=== PATIENT | female | born 1985 | race Asian ===

== ENCOUNTER 2017-01-07 14:22 | Emergency (ER) | payer BC ==
[2017-01-07 14:59] VITALS: BP 99/60
--- NOTE | 2017-01-07 15:25 | UC ---
Skin Complaint HPI - HPI Summary HPI Summary: 31 female presents with complaints of bug bites after sleeping in a hotel bed last night. She noticed the bugs in the bed around 11pm. States she went to a different hotel at this time. She has approximately 5-6 bites mainly on her right arm. Denies discharge. Admits to redness, swelling and pruritis. Patient was just seen at her OBGYN as she is 17 weeks . She is worried about ad terminal makeup operator effects. Denies any PMHx. Patient brought a picture on her phone and resembles bed bugs. - History of Current Complaint Chief Complaint: UCSkin Time Seen by Provider: 01/07/17 14:56 Stated Complaint: BUG BITE Hx Obtained From: Patient Hx Last Menstrual Period: 01/31/16 ?: Yes Onset/Duration: Sudden Onset Skin Exposure Onset/Duration: Days Ago Onset Severity: Mild Current Severity: Mild Location: Hand (Right), Other - right upper extremitiy Character: Pruritus, Redness, Raised Aggravating: Nothing Alleviating: Nothing Associated Signs & Symptoms: Positive: Negative Related History: Insect Bite/Sting - bed bugs - Allergy/Home Medications Allergies/Adverse Reactions: Allergies Allergy/AdvReac Type Severity Reaction Status Date / Time Penicillins Allergy Hives Verified 02/16/16 18:15 Sulfa Antibiotics Allergy Hives Verified 02/16/16 18:15 Home Medications: Home Medications Vitamins 1 tab PO DAILY 01/07/17 [History Confirmed 01/07/17] Review of Systems Constitutional: Negative Skin: Other - bed bug bites Respiratory: Negative Cardiovascular: Negative Gastrointestinal: Negative Musculoskeletal: Negative Neurological: Negative All Other Systems Reviewed And Are Negative: Yes PMH/Surg Hx/FS Hx/Imm Hx Endocrine History Of: Denies: Diabetes, Thyroid Disease Cardiovascular History Of: Denies: Cardiac Disorders, Hypertension Respiratory History Of: Denies: COPD, Asthma GI/ History Of: Denies: Ulcer - Surgical History Surgical History: None - Family History Known Family History: Positive: None - Social History Alcohol Use: a little sip Substance Use Type: None Smoking Status (MU): Never Smoked Tobacco - Immunization History Most Recent Tetanus Shot: 2011 Vaccination Up to Date: Yes Physical Exam Triage Information Reviewed: Yes Appearance: Well-Appearing, No Pain Distress, Well-Nourished Vital Signs: Initial Vital Signs Temp 98.8 F 01/07/17 14:52 Pulse 75 01/07/17 14:52 Resp 18 01/07/17 14:52 BP 99/60 01/07/17 14:52 Pulse Ox 99 01/07/17 14:52 Vital Signs Reviewed: Yes Eyes: Positive: Conjunctiva Clear ENT: Positive: Normal ENT inspection, Hearing grossly normal Neck: Positive: Supple, Nontender Respiratory: Positive: Chest non-tender, Lungs clear, Normal breath sounds, No respiratory distress, No accessory muscle use Cardiovascular: Positive: RRR, No Murmur, Pulses Normal Neurological Exam: Normal Skin: Positive: Other - 6-7 bed bugs on right upper extremity noted, erythema, raised and pruritic. non tender. no discharge. not infected Course/Dx - Course Course Of Treatment: patient was re-assured that she can not get ad terminal makeup operator diseases from bed bugs as they are not proven as vector to carry disease. educated on worsening signs and symptoms to watch out for. use benadryl anti itch and neosporin on bites. did not want to take anti histamine or use topical corticosteroids due to . follow up. educated on washing all belongings and to let hotel know about incident. - Differential Diagnoses - Skin Complaint Differential Diagnoses: Cellulitis, Contact Dermatitis, Scabies, Tick Born Illness, Urticaria, Viral Exanthem, Other - Diagnoses Provider Diagnoses: insect bites- bed bugs Discharge - Discharge Plan Condition: Stable Disposition: HOME Patient Education Materials: Bed Bugs (ED) Referrals: No Primary Care Phys,NOPCP [Primary Care Provider] - Additional Instructions: Use OTC topical medications such as Benadryl anti-itch cream and triple antibiotic ointment such as Nesoporin. Bug bites should heal over the next couple of days. Watch for signs of infection such as increasing redness, streaking, discharge and fever/chills. Be sure to check all belongings to eliminate bugs.
== END 2017-01-07 15:40 | disposition home or self-care (01) ==
LOC: UCEAST 14:22
DX: O26.892 Other specified pregnancy related conditions, second trimester (principal); S40.861A Insect bite (nonvenomous) of right upper arm, initial encounter; Z3A.17 17 weeks gestation of pregnancy; W57.XXXA Bitten or stung by nonvenomous insect and other nonvenomous arthropods, initial encounter; Y93.9 Activity, unspecified; Y92.59 Other trade areas as the place of occurrence of the external cause; Z88.0 Allergy status to penicillin; Z88.2 Allergy status to sulfonamides
CPT/HCPCS: 99211; G0463

== ENCOUNTER 2017-06-12 12:41 | Inpatient (IN) | payer BC ==
[2017-06-12] MEDS ORDERED: Buffered Lidocaine 0.9% SYRIN* 5 ML/SYR SYRINGE ONE (15:18)
[2017-06-12] MEDS ORDERED: OBEPIDURAL* 250 ML ONE (15:45)
[2017-06-12 15:47] LABS: Hematocrit 39 % (35-47); Hemoglobin 13.3 g/dl (12.0-16.0); Mean Corpuscular HGB Conc 34 g/dl (31-36); Mean Corpuscular Hemoglobin 32 pg (27-31); Mean Corpuscular Volume 94 fL (80-97); Mean Platelet Volume 9 um3 (7.4-10.4); Red Blood Count 4.18 10^6/ul (4.0-5.4); Red Cell Distribution Width 15 % (10.5-15); White Blood Count 13.1 10^3/ul (3.5-10.8)
[2017-06-12] MEDS ORDERED: Sodium Citrate/Citric Acid* 15 ML UDC PO PRN (16:47)
[2017-06-12] MEDS ORDERED: Famotidine TAB* 20 MG PO PRN (16:47)
[2017-06-12] MEDS ORDERED: EPHEDrine (Pressors)* 50 MG/ML VIAL IV PUSH PRN ×2 (16:47)
[2017-06-12] MEDS ORDERED: Phenylephrine IV* 40 MCG/ML 10 ML SYRINGE IV PUSH PRN ×2 (16:47)
[2017-06-12] MEDS ORDERED: OBEPIDURAL* 250 ML EPIDURAL SCH (17:00)
[2017-06-12] MEDS ORDERED: Oxytocin in LR* 20 UNITS/1,000 ML BAG IVPB ONE (23:41)
[2017-06-13] MEDS ORDERED: Ibuprofen TAB* 600 MG PO PRN (00:17)
[2017-06-13] MEDS ORDERED: Acetaminophen TAB* 325 MG PO PRN (00:17)
[2017-06-13] MEDS ORDERED: Glycerin ADULT SUPP PR PRN (00:17)
[2017-06-13] MEDS ORDERED: Dibucaine 1% 28.35 GM TUBE PR PRN (00:17)
[2017-06-13] MEDS ORDERED: Oxytocin in LR* 20 UNITS/1,000 ML BAG IVPB SCH (01:00)
[2017-06-13] MEDS ORDERED: Simethicone TAB* 80 MG TAB.CHEW PO SCH (08:30)
[2017-06-13] MEDS: Prenatal Vitamin TAB PO SCH (09:19)
[2017-06-13] MEDS: Docusate CAP* 100 MG PO SCH ×3 (09:20→21:00)
[2017-06-14 06:20] LABS: Hematocrit 33 % (35-47); Hemoglobin 11.2 g/dl (12.0-16.0); Mean Corpuscular HGB Conc 34 g/dl (31-36); Mean Corpuscular Hemoglobin 32 pg (27-31); Mean Corpuscular Volume 94 fL (80-97); Mean Platelet Volume 8 um3 (7.4-10.4); Red Blood Count 3.51 10^6/ul (4.0-5.4); Red Cell Distribution Width 15 % (10.5-15); White Blood Count 15.2 10^3/ul (3.5-10.8)
[2017-06-14] MEDS: Witch Hazel PAD* JAR TOPICAL PRN (08:00)
[2017-06-14] MEDS: Prenatal Vitamin TAB PO SCH (08:45)
[2017-06-14] MEDS: Docusate CAP* 100 MG PO SCH ×3 (08:45→20:20)
[2017-06-14] MEDS ORDERED: Ferrous Gluconate TAB* 324 MG TAB PO SCH (09:00)
--- NOTE | 2017-06-14 23:16 | PTEDU ---
Patient Name: DERECK SAAVEDRA QUENTINDERECK selected video: Never Ever Shake a Baby to view on 06/14/2017 at 11:15:38 PM [id number]
[2017-06-15 07:59] VITALS: BP 111/70
[2017-06-15] MEDS: Docusate CAP* 100 MG PO SCH (09:45)
[2017-06-15] MEDS: Prenatal Vitamin TAB PO SCH (09:46)
[2017-06-15] MEDS: Witch Hazel PAD* JAR TOPICAL PRN (10:00)
== END 2017-06-15 12:24 | disposition home or self-care (01) | DRG 560 ==
LOC: MCHOBOUT 12:41 → MCHOB 12:42 → MCHOBOUT 13:23 → MCHOB 13:23
PROVIDERS: ADMIT Obstetrics & Gynecology; ATTEND Obstetrics & Gynecology
PROC: 10E0XZZ Delivery of Products of Conception, External Approach (ICD-10-PCS; principal; 2017-06-12)
PROC: 10907ZC Drainage of Amniotic Fluid, Therapeutic from Products of Conception, Via Natural or Artificial Opening (ICD-10-PCS; 2017-06-12)
PROC: 4A1HXCZ Monitoring of Products of Conception, Cardiac Rate, External Approach (ICD-10-PCS; 2017-06-12)
DX: O80 Encounter for full-term uncomplicated delivery (principal); Z88.0 Allergy status to penicillin; Z3A.39 39 weeks gestation of pregnancy; Z37.0 Single live birth; Z88.2 Allergy status to sulfonamides
CPT/HCPCS: 36415; 85025; 86592; 86850; 86900; 86901; A9270-GY